=== PATIENT | male | born 1955 | race Caucasian/White ===

== ENCOUNTER 2018-10-11 07:37 | Inpatient (IN) ==
--- NOTE | 2018-10-02 17:19 | History and Physical Report ---
DATE OF ADMISSION: 10/11/2018 CHIEF COMPLAINT: Persistent left hip pain and discomfort. HISTORY OF PRESENT ILLNESS: The patient is a 63-year-old [employer] gentleman who is well known to me from previous right hip replacement done back in December 26 of last year. He has done well from this side. He has become more and more debilitated by left hip pain and discomfort. He has been in a gradual process over the past 2 years, but he has noticed this hip a lot more, now his right hip to fix. He describes groin pain. He continues to limp. No numbness or radicular symptoms. He is really happy with his right hip and would like to proceed with left hip replacement. 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 This elevates some of his blood tests including his white blood cell count. He is chronically anemic. He is without symptoms. We were able to get him to his last surgery without a blood transfusion. PAST MEDICAL HISTORY: 1. Asthma. 2. Arthritis. 3. Low back pain. 4. Chronic genetic pyruvate kinase deficiency. PAST SURGICAL HISTORY: Previous surgeries include: 1. Cholecystectomy. 2. Hiatal hernia. 3. Right total hip replacement done 12/26/2017. ALLERGIES: PENICILLIN WHICH CAUSES HIVES. No breathing problems. CURRENT MEDICINES: Include unspecified inhaler. 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 FAMILY HISTORY: Nonremarkable except for this pyruvate kinase deficiency. REVIEW OF HISTORY: Negative for diabetes, neurologic problems, vascular problems or bleeding disorders. He has got chronic anemia and elevated white count and elevated platelets due to the pyruvate kinase deficiency. PHYSICAL EXAMINATION: GENERAL: Physical examination shows a thin, healthy appearing, middle-aged male. HEENT: Benign. NECK: Supple. No lymphadenopathy. LUNGS: Clear to auscultation. HEART: Has a regular rate and rhythm. ABDOMEN: Soft, nontender, nondistended. EXTREMITIES: Grossly neurovascularly intact except as follows: Examination of the left hip reveals the patient walks with an antalgic gait. He is about 0.5 cm short on left side compared to the opposite side. He does have pain with internal rotation. I can internally rotate to about neutral. External rotation to about 30 degrees. Negative straight leg raise. He is neurologically intact. X-RAYS: X-rays of left hip were reviewed. Shows advanced left hip DJD. He has got cystic change of the femoral head and acetabulum. He has got concentric loss of his joint space. The right hip replacement looks to be in good position. ASSESSMENT: A 63-year-old Ep[employer] gentleman 9 months out from a right hip replacement with advanced left degenerative joint disease. He has become more debilitated by his left hip pain and would like to have this fixed. PLAN: We will take him to the operating room and do a left total hip replacement. The risks and benefits of this procedure were explained to the patient including but not limited to DVT, PE, , infection, neurological injury, vascular injury, bleeding problem, pain, limited range of motion, stiffness, failure to relieve symptoms, incomplete relief of symptoms, need for further surgery in future, fracture, leg length inequality, nerve palsy, dislocation, etc. The patient understands and desires to proceed. Informed consent was obtained. We did make him aware and he is fully aware that he is increased risk for a need for blood transfusion due to his pyruvate kinase deficiency. We will make sure he is on iron postoperatively. He did ask about just having a general anesthetic and I did tell him, I think it is in his best interest to do a spinal due to the limited that decreases the blood loss, but I will leave that up to him. He is planning to be discharged to home.
--- NOTE | 2018-10-08 13:28 | Anesthesiology Consultation ---
Date of Service October 08, 2018 Assessment & Plan (1) Encounter for pre-operative examination: Patient had R GALLO at [facility] 12/26/17. Anesthesia record shows SAB x 1 attempt, pt mejia. well. No major complications apparent in PACU. No blood transfusion needed. CHECK CBC STAT AM DOS. PCP clearance 10/10/18: This is to advise the Jose Enrique Barone has pyruvate kinase deficiency along with arthritis in his hip. His most recent hemoglobin is 8.9, which is good for him. There is no need to transfuse him unless he has extensive blood loss during his upcoming left hip surgery. The patient also has a grade 2 systolic murmur that is from the anemia and is of no real significance at this time. Patient is cleared to have his surgery as scheduled on Sunday10/11/18, under spinal anesthesia and any other medication the anesthesiologist suggested at that time. *Note, patient is Albaro and was not able to be reached fo nurse interview. History obtained from records. Chart Review Chart Review: Acceptable Risk for Surgery and Patient NOT seen in Pre Admission Testing History Surgery Operation Date: 10/11/18 10:40 Proposed Procedures p Left Total Hip Arthroplasty - Francesco Silveira MD Height/Weight Height: 5 ft 8 in Weight: 61.9 kg (From anesthesia eval 12/2017) Allergies Allergy/AdvReac Type Severity Reaction Status Date / Time Penicillins Allergy Severe HIVES Verified 12/26/17 10:34 Medications Home Medications Medication Instructions Recorded Confirmed Last Taken Albuterol Sulfate (Proair 2 puff INHALATION Q4H PRN #0 12/17/17 Unknown Respiclick) B-COMPLEX W/BIOTIN & FOLIC ACI 1 tab PO QAM #0 12/17/17 Unknown (SUPER B-COMPLEX) BIOFLAVONOID PRODUCTS (KAREN-C) 1 tab PO QAM #0 12/17/17 Unknown CALCIUM 500 mg PO QAM #0 12/17/17 Unknown CHOLECALCIFEROL (VITAMIN D) 5,000 unit PO QAM #0 12/17/17 Unknown Cyanocobalamin (Vitamin B-12) 3,000 mcg PO QAM #0 12/17/17 Unknown Folic Acid 800 mcg PO QAM #0 12/17/17 Unknown PAULA ARTHRITIS 1 tab PO BID #0 12/17/17 Unknown NUTRITIONAL SUPPLEMENTS (LIVER 1 tab PO QAM #0 12/17/17 Unknown DEFENSE) ACETAMINOPHEN (SB NON-ASPIRIN 1,000 mg PO Q8H 30 Days #180 tab 12/27/17 Unknown EXTRA STRE) ASPIRIN 81 mg PO BID 45 Days #90 tab 12/27/17 Unknown Tramadol HCl 50 - 100 mg PO Q6H PRN 15 Days #40 12/27/17 Unknown tab Past Medical History Medical History Pyruvate kinase deficiency Causing baseline anemia, leukocytosis and thrombocytosis. Baseline Hgb 8-9. Surgeon is aware of condition, notes that "we were able to get him to his last surgery without a blood transfusion" referring to 12/2017 [facility], [facility]. Low back pain Osteoarthritis Asthma COPD (chronic obstructive pulmonary disease) "Mild emphysematous process" noted on CXR 12/17/17 Heart murmur Moderate AV sclerosis without stenosis per 2018 echo. Past Surgical History Surgical History History of repair of hiatal hernia S/P cholecystectomy H/O total hip arthroplasty [facility] 12/26/17 H/O splenectomy age 18mo Past Anesthesia History R GALLO 12/17/17 [facility]: SAB x 1 attempt, pt mejia. well. Testing Electrocardiogram Date: 12/17/17 Findings: + NSR @ (73) Chest X-Ray Date: 12/17/17 Findings: + NAD Mild emphysematous process. Echocardiogram Date: 12/26/17 EF: 65-70% There is mild concentric LVH. Left ventricular systolic function is normal. Grade 1 diastolic dysfunction. Aortic valve sclerosis moderate, without significant aortic valve stenosis. Trace MR. Moderate TR. Right ventricular systolic pressure is normal. Laboratory Results Laboratory Tests 09/26/18 09/26/18 09/26/18 14:09 14:09 14:09 WBC 16.01 H Hgb 8.9 L Hct 27.7 L Plt Count 827 H PT 11.1 INR 1.1 APTT 30.0 Sodium 137 Potassium 4.2 Chloride 104 Carbon Dioxide 29 BUN 16 Creatinine 0.66 Glucose 88
[~2018-10-11 07:37] MED LIST: ACETAMINOPHEN 500 MG TAB PO SCH; BUPIVACAINE 0.5 % 5 MG/1 ML PF 10ML VIAL ONE; CEFAZOLIN 2000MG 2,000 MG/15 ML SYR IV SCH; FAMOTIDINE 20 MG TAB PO SCH; GABAPENTIN 300 MG x 2 PO SCH; LR 500ML BOLUS, THEN 15ML/HR IV SCH; LR 60ML/HR IV SCH; METOCLOPRAMIDE HCL 10 MG TABLET PO SCH; SCOPOLAMINE 1.5 MG TDSY TD SCH; TRANEXAMIC ACID 1,000 MG **IV Pre-op IV SCH
[2018-10-11 08:13] LABS: Hematocrit (blood only) 29.8 % (42-52); Hemoglobin 9.8 g/dL (14.0-18.0); Mean Corpuscular Volume 119.7 fL (80-100); Nucleated RBC # (auto) 0.11 K/uL (0-0); Nucleated RBC % (auto) 0.9 %; Platelet Count 709 K/uL (130-400); RDW Coefficient of Variation 13.6 % (11.5-14.5); RDW Standard Deviation 60.1 fL (36.4-46.3); Red Blood Count 2.49 M/uL (4.7-6.1); White Blood Count 11.69 K/uL (4.8-10.8)
[2018-10-11 08:19] LABS: Mean Corpuscular Hgb Conc 32.9 g/dL (32-36)
--- NOTE | 2018-10-11 08:31 | History & Physical Bridge Note ---
Date of Service October 11, 2018 History & Physical Bridge Note I have examined the patient, reviewed the History & Physical and in the interval since the performance of the History & Physical I have noted the following changes of clinical significance: no changes noted
[2018-10-11] MEDS ORDERED: PROPOFOL IV EMULSION 10 MG/ML 20 ML VIAL IV ONE (09:56)
[2018-10-11] MEDS ORDERED: LIDOCAINE HCL 2% 2 ML VIAL/AMP(20MG/ML) INFIL ONE (09:56)
[2018-10-11] MEDS ORDERED: MoRPHine SULFATE PF 1 MG/ML 10 ML AMP/VIAL ONE (09:56)
[2018-10-11] MEDS ORDERED: fentaNYL citrate 100 MCG/2 ML VIAL ONE (09:56)
[2018-10-11] MEDS ORDERED: MIDAZOLAM HCL 1 MG/ML 2ML VIAL ONE (09:56)
[2018-10-11] MEDS ORDERED: BACITRACIN INJ 50,000 UNIT VIAL ONE (10:55)
[2018-10-11] MEDS ORDERED: BUPIVACAINE/EPINEPHRINE 0.5% MPF 1:200,000 30 ML VIAL ONE (10:55)
[2018-10-11] MEDS ORDERED: PROMETHAZINE HCL 25 MG in SODIUM CHLORIDE 0.9% 50 ML IV PRN (11:15)
[2018-10-11] MEDS ORDERED: NALOXONE HCL 1 MG in SODIUM CHLORIDE 0.9% 1000ML 1,000 ML IV PRN (11:15)
[2018-10-11] MEDS ORDERED: LACTATED RINGER'S 500 ML IV PRN (11:15)
[2018-10-11] MEDS ORDERED: ONDANSETRON INJ 2 MG/ML 2 ML VIAL IV PRN (11:15)
[2018-10-11] MEDS ORDERED: ePHEDrine sulfate 50 MG/ML AMP IV PRN (11:15)
[2018-10-11] MEDS ORDERED: DC INTRASPINAL MORPHINE SCH (11:15)
[2018-10-11] MEDS ORDERED: SODIUM CHLORIDE 0.9% 1000ML 1,000 ML IV SCH (11:15)
[2018-10-11] MEDS ORDERED: NO NARCOTICS OR SEDATIVES SCH (11:15)
[2018-10-11] MEDS ORDERED: MoRPHine SULFATE PF 1 MG/ML 10 ML AMP/VIAL INT SPINAL ONE (11:15)
[2018-10-11] MEDS ORDERED: NALBUPHINE HCL INJ 10 MG/ML AMP IV PRN (11:15)
[2018-10-11] MEDS ORDERED: DiphenhydrAMINE HCL 50 MG/ML VIAL IV PRN (11:15)
[2018-10-11] MEDS ORDERED: NALOXONE HCL 0.4 MG/1 ML VIAL/CARP IV PRN (11:15)
[2018-10-11] MEDS ORDERED: NALOXONE HCL 0.08 MG in SYRINGE 1.8 ML IV PRN (11:15)
[2018-10-11] MEDS ORDERED: ONDANSETRON INJ 2 MG/ML 2 ML VIAL ONE (11:18)
--- NOTE | 2018-10-11 12:27 | Post Operative Brief Note ---
Immediate Post Op Note v1 Date of Surgery October 11, 2018 Pre & Post Diagnosis Operation Date: 10/11/18 10:40 Pre-Op Diagnosis: Advanced Left Hip Degenerative Joint Disease Post-Op Diagnosis: Advanced Left Hip Degenerative Joint Disease Procedure Operation Date: 10/11/18 10:40 Actual Procedures p Left Total Hip Arthroplasty(Left) - Francesco Silveira MD Surgeon Francesco Silveira MD [employer], PAC Estimated Blood Loss 300 Findings Consistent with Post-Op Diagnosis Fluids 1400 cc Specimens Left Femoral Head Drains Gonsalves Catheter Anesthesia Type Spinal MAC Complications none Disposition Accompanied Patient To Recovery: Yes Disposition: Recovery Room
--- NOTE | 2018-10-11 13:05 | XRay Report ---
XR hip 1V LT w pelvis HISTORY: 63 years-old Male IN PACU - A/P PELVIS and LATERAL HIP left hip total joint arthroplasty. History of degenerative joint disease. COMPARISON: Pelvis and hip radiographs 12/26/2017 and 09/26/2018 TECHNIQUE: Portable AP view of the pelvis with crosstable lateral view of the left hip FINDINGS: Left hip total joint arthroplasty demonstrates satisfactory alignment. Lateral skin sola are noted with associated subcutaneous and deep tissue air. No retained foreign body. Right hip total joint ar throplasty also appears to be in satisfactory positioning. IMPRESSION: Left hip total arthroplasty demonstrates satisfactory alignment. The above report was generated using voice recognition software. It may contain grammatical, syntax o r spelling errors. Electronically signed by: Mac Pugh M.D. 10/11/2018 1:04 PM
--- NOTE | 2018-10-11 13:08 | Anesthesiology Progress Note ---
Date of Service October 11, 2018 Anesthesia Post Procedure Vital Signs Vital Signs: Temp Pulse Pulse Resp BP Pulse Ox 10/11/18 13:00 72 13 114/71 100 10/11/18 12:50 63 13 106/68 100 10/11/18 12:40 65 16 108/65 100 10/11/18 12:30 36.1 C L 72 20 106/62 100 10/11/18 09:12 36.8 C 69 18 135/77 95 Pain Intensity Left Hip: Pain Intensity: 0 Notes Mental Status: alert / awake / arousable Patient Amnestic to Procedure: Yes Nausea / Vomiting: adequately controlled Pain: adequately controlled Airway Patency, RR, SpO2: stable & adequate BP & HR: stable & adequate Hydration State: stable & adequate Neuraxial Anesthesia: was administered and sensory block is resolving Anesthetic Complications: no major complications apparent
[2018-10-11] MEDS ORDERED: ALBUTEROL HFA 8 GM INHALER INH PRN (13:58)
[2018-10-11] MEDS ORDERED: ALUMINUM/MAGNESIUM SUSP 30 ML UDC PO PRN (13:58)
[2018-10-11] MEDS ORDERED: TAMSULOSIN HCL 0.4 MG CAP PO PRN (13:58)
[2018-10-11] MEDS ORDERED: BISACODYL 10 MG SUPP PR PRN (13:58)
[2018-10-11] MEDS ORDERED: [UNRECOGNIZED DRUG - REMARK] PO SCH (13:58)
[2018-10-11] MEDS ORDERED: METOCLOPRAMIDE HCL INJ 5 MG/ML 2 ML VIAL IV PRN (13:58)
[2018-10-11] MEDS ORDERED: MAGNESIUM HYDROXIDE SUSP 30 ML UDC PO PRN (13:58)
[2018-10-11] MEDS: SODIUM CHLORIDE 0.9% 1000ML 1,000 ML IV SCH ×2 (14:46→23:30)
--- NOTE | 2018-10-11 16:08 | Progress Note ---
DATE: 10/11/2018 SUBJECTIVE: A 63-year-old gentleman postop from a left hip replacement. He is doing well. Just starting to get the feeling and function back in his legs. Not having any pain yet. No chest pain or shortness of breath. Not feeling dizzy or lightheaded. OBJECTIVE: VITAL SIGNS: Temperature is 36.7. Vital signs stable. GENERAL: Physical examination reveals a pleasant, middle-aged male. He is sitting up in bed, looks comfortable. LUNGS: Clear to auscultation. HEART: Regular rate and rhythm. ABDOMEN: Soft, nontender, nondistended. EXTREMITIES: Grossly neurovascularly intact except as follows: Examination of the left lower extremity reveals the leg lengths to be approximately equal. Hip is located. Dressing is clean, dry, and intact. He can dorsiflex and plantarflex his foot appropriately. He is neurologically intact. X-RAYS: X-ray of left hip from recovery room reviewed. It shows left uncemented total hip arthroplasty. Components looked to be in good position. No signs of problems. ASSESSMENT: A 63-year-old [facility] gentleman postop from a left hip replacement, doing well. His pain is controlled. Just starting to get the nerve function back in his leg. PLAN: 1. DVT prophylaxis including thigh-high TEDs, SCDs, and aspirin twice a day. 2. PT/OT. Weight bear as tolerated. Left total hip protocol. 3. Pain control, doing well with current pain regimen. 4. IV antibiotics x24 hours. 5. Disposition: Plan to discharge to home with some home health once adequately recovered.
[2018-10-11] MEDS: FERROUS GLUCONATE 324 MG TAB PO SCH (16:26)
[2018-10-11] MEDS: KETOROLAC 30 MG/ML VIAL IV SCH ×2 (16:28→22:25)
[2018-10-11] MEDS: CHECK SCOPOLAMINE PATCH PLACEMENT SCH ×2 (16:30→23:30)
--- NOTE | 2018-10-11 16:35 | Operative Report ---
DATE OF OPERATION: 10/11/2018 SURGEON: Francesco Silveira MD AUTOMATIC MACHINES SUPERVISOR: BROOKS Osman PREOPERATIVE DIAGNOSIS: Left hip degenerative joint disease. POSTOPERATIVE DIAGNOSIS: Left hip degenerative joint disease. PROCEDURE PERFORMED: Left uncemented ceramic on highly cross-linked polyethylene total hip arthroplasty. COMPLICATIONS: None. ESTIMATED BLOOD LOSS: 300 mL. FLUID REPLACEMENT: 1400 mL crystalloid fluid replacement. ANESTHESIA: Spinal. DRAINS: None. SPECIMENS: Left femoral head sent for pathology. OPERATIVE INDICATIONS: The patient is a 63-year-old very active [employer] gentleman who has had a lifelong history of hip pain and discomfort. He underwent a right hip replacement 10 months ago and has done excellent from this. He continued to be limited by left hip pain and discomfort. He failed all conservative care. He elected to proceed with total hip arthroplasty. OPERATIVE FINDINGS: Operative findings revealed advanced left hip DJD. Extensive grade 4 changes of the femoral head and acetabulum. Moderate size joint effusion. OPERATIVE IMPLANTS: Operative implants consisted of: 1. Biomet G7 size 58 mm acetabular shell. 2. 6.5 cancellous acetabular screws, one at 35 mm in length and one at 25 mm in length. 3. An apex hole eliminator. 4. Highly cross-linked polyethylene liner with a 58 mm outer diameter and 36 mm inner diameter. 5. DePuy Corail size 13 KLA femoral stem. 6. A +5/36 mm ceramic articular ball. OPERATIVE PROCEDURE: The patient was taken to the operating room, identified and placed on the operating table in supine position. All contact areas were appropriately padded. IV antibiotics were provided by anesthesia team. A spinal anesthetic had been implemented in the holding area. Gonsalves catheter was placed in sterile fashion. The patient was then placed in right lateral decubitus position. An axillary roll was placed. [facility] hip positioner was used for positioning. Left hip and leg were then prepped and draped in usual sterile fashion. A posterolateral approach to the left hip was then performed through a curvilinear incision centered over the greater trochanter. Sharp dissection was carried through subcutaneous tissue down to the level of the IT band and gluteal fascia. The IT band and gluteal fascia were incised longitudinally in line with the skin incision. The underlying greater trochanteric bursa was excised. The piriformis and external rotators were tagged and taken off the posterior aspect of the hip joint. Great care was taken throughout the procedure to protect the sciatic nerve at all times. Posterior capsulotomy was then performed leaving a large flap for later repair. Hip was internally rotated and dislocated. Femoral neck osteotomy cut was made with the final cut 17 mm above the lesser trochanter, which was about the same as the other side. The femoral head was removed and sent for pathology. The femur was retracted anteriorly. Attention was then drawn to the acetabulum. The acetabular labrum was excised. The pulvinar fat was excised. Sequential reaming of the acetabulum was then performed beginning with a size 51 and progressing up to 57. A 58 mm Biomet G7 acetabular shell was then placed in about 40 degrees of lateral opening and 20 degrees of anteversion. It was fixed with two 6.5 cancellous acetabular screws. A trial liner was placed. Attention was then drawn to the femur. The proximal femur was entered with a [employer] cutter followed by canal finder. I then broached beginning with a size 8 and progressing up to 13. His cancellous bone was not very robust or supportive, but had to get pretty good distal fixation distally. We broached it up to 13. We got good fit. A calcar reamer was used to smoothen off the calcar. The final calcar cut was about 17 mm, which was just a millimeter less than the opposite side. We then trialed the hip. I initially used the KLA stem, but the offset just seemed too much. The hip was stable, but just seemed too tight, particularly over the IT band area. Therefore, we elected to use the standard stem with +5 ball. The hip was fully stable in full extension and external rotation and flexion to 90 degrees, internal rotation to over 70 degrees at 90 degrees of flexion. I elected to place these implants. All trial implants were removed. An apex hole eliminator was placed. Highly cross-linked polyethylene liner was placed. A Corail size 13 standard femoral stem was impacted in position. A +5/36 mm articular ball was placed. Hip was located and once again found to be stable. Attention was then drawn toward closing. The wound was irrigated with copious amounts of pulsatile lavage solution. I did inject locally with 60 mL of 0.5% Marcaine with epinephrine. The posterior capsule and external rotators were then repaired through drill holes in the posterior trochanter with #2 Ti-Cron suture. The IT band and gluteal fascia were then closed with #1 PDS suture in running fashion. The subcutaneous tissues were then closed in 2 layers with deep layer #1 Vicryl suture and subcutaneous tissue with 2-0 Dexon suture in a buried interrupted fashion. The skin was closed with skin sola. Leg was then cleaned, dried and a sterile dressing of Xeroform, 4 x 4's, ABD pad and foam tape was applied. The patient was then transferred to the recovery room in stable condition. The patient tolerated the procedure well with no complication. All needle and sponge counts were correct at the end of the operation. I attest to the content of the Intraoperative Record and any orders documented therein. Any exception s are noted below.
[2018-10-11] MEDS: ASCORBIC ACID 500 MG TAB PO SCH (16:37)
[2018-10-11] MEDS: CEFAZOLIN 1000MG 1,000 MG/7.5 ML SYR IV SCH (18:39)
[2018-10-11] MEDS ORDERED: TRANEXAMIC ACID 1,000 MG in 0.9 % SODIUM CHLORIDE 100 ML IV SCH (19:00)
[2018-10-11] MEDS: SENNA 8.6 MG TAB PO SCH (20:50)
[2018-10-11] MEDS: DOCUSATE SODIUM 100 MG CAP PO SCH (20:50)
[2018-10-11] MEDS: ASPIRIN 81 MG ECTAB PO SCH (20:50)
[2018-10-11] MEDS ORDERED: [UNRECOGNIZED DRUG - OTHER] PO SCH (21:00)
[2018-10-11] MEDS ORDERED: NON-FORMULARY MEDICATION (Aspirin 81 MG) PO SCH (21:00)
[2018-10-11] MEDS: ACETAMINOPHEN 500 MG TAB PO SCH (21:13)
[2018-10-12] MEDS: CEFAZOLIN 1000MG 1,000 MG/7.5 ML SYR IV SCH (03:48)
[2018-10-12] MEDS: KETOROLAC 30 MG/ML VIAL IV SCH ×3 (03:48→19:53)
[2018-10-12] MEDS: ACETAMINOPHEN 500 MG TAB PO SCH ×3 (05:04→19:53)
[2018-10-12] MEDS ORDERED: ONDANSETRON INJ 2 MG/ML 2 ML VIAL IV PRN (05:16)
[2018-10-12] MEDS ORDERED: HYDROmorphone INJ 0.5 MG/0.5 ML SYR IV PRN (05:16)
[2018-10-12] MEDS ORDERED: OXYCODONE HCL IR 5 MG TAB (IMMEDIATE RELEASE) PO PRN (05:16)
[2018-10-12] MEDS ORDERED: NALOXONE HCL 0.4 MG/1 ML VIAL/CARP IV PRN (05:16)
[2018-10-12] MEDS ORDERED: TRAMADOL HCL 50 MG TABLET PO PRN (05:16)
[2018-10-12 06:16] LABS: Basophils # (auto) 0.09 K/uL (0-0.2); Basophils % (auto) 0.5 %; Eosinophils # (auto) 0.44 K/uL (0-0.5); Eosinophils % (auto) 2.5 %; Hematocrit (blood only) 23.2 % (42-52); Hemoglobin 7.8 g/dL (14.0-18.0); Immature Granulocytes % (auto) 0.6 %; Lymphocytes # (auto) 4.19 K/uL (1.2-3.4); Lymphocytes % (auto) 23.9 %; Mean Corpuscular Hgb Conc 33.6 g/dL (32-36); Mean Platelet Volume 9.1 fL (7.4-10.4); Monocytes # (auto) 1.73 K/uL (0.11-0.59); Monocytes % (auto) 9.9 %; Neutrophils # (auto) 10.98 K/uL (1.4-6.5); Neutrophils % (auto) 62.6 %; Nucleated RBC # (auto) 0.06 K/uL (0-0); Nucleated RBC % (auto) 0.4 %; Platelet Count 537 K/uL (130-400); RDW Coefficient of Variation 13.6 % (11.5-14.5); RDW Standard Deviation 58.4 fL (36.4-46.3); Red Blood Count 1.95 M/uL (4.7-6.1); White Blood Count 17.53 K/uL (4.8-10.8)
[2018-10-12 06:37] LABS: BUN Creatinine Ratio 26.7 (10-20); Calcium 7.9 mg/dl (8.5-10.1); Creatinine Clr Calc Pharmacy 105.9 ml/min; Est GFR (African American) 120.9; Est GFR (Non-African American) 104.3; Potassium 4.2 mmol/L (3.5-5.1)
[2018-10-12 07:09] LABS: Howell-Jolly Bodies Occasional; Macrocytosis Present; Pappenheimer Bodies 3+
[2018-10-12] MEDS: ASCORBIC ACID 500 MG TAB PO SCH ×2 (08:37→18:34)
[2018-10-12] MEDS: ASPIRIN 81 MG ECTAB PO SCH ×2 (08:38→19:52)
[2018-10-12] MEDS: DOCUSATE SODIUM 100 MG CAP PO SCH ×2 (08:38→19:52)
[2018-10-12] MEDS: MULTIVITAMIN TAB PO SCH (08:39)
[2018-10-12] MEDS: VITAMIN B COMPLEX TAB PO SCH (08:39)
[2018-10-12] MEDS: TAPENTADOL HCL ER 50 MG TABCR PO SCH ×2 (08:39→19:51)
[2018-10-12] MEDS: CYANOCOBALAMIN 500 MCG TABLET (VITAMIN B-12) PO SCH (08:40)
[2018-10-12] MEDS: CHOLECALCIFEROL 1,000 UNITS TAB PO SCH (08:41)
[2018-10-12] MEDS ORDERED: NUTRITIONAL SUPPLEMENTS PO SCH (09:00)
[2018-10-12] MEDS ORDERED: BIOFLAVONOID PRODUCTS PO SCH (09:00)
--- NOTE | 2018-10-12 09:08 | Progress Note ---
DATE: 10/12/2018 SUBJECTIVE: A 63-year-old gentleman postop day 1 from a left hip replacement. He is doing pretty well. No pain at while lying in bed. Some pain when he was getting up and around. No chest pain or shortness of breath. Not feeling dizzy or lightheaded. OBJECTIVE: VITAL SIGNS: Temperature is 36.5. Vital signs stable. GENERAL: Physical examination reveals a healthy, pleasant, middle-aged male. He is lying in bed, looks comfortable. Color looks good. LUNGS: Clear to auscultation. HEART: Regular rate and rhythm. ABDOMEN: Soft, nontender, nondistended. EXTREMITIES: Grossly neurovascularly intact except as follows: Examination of the left hip and leg reveals leg lengths to be equal. Hip is located. Thigh is soft and supple. No drainage on his dressing. He is neurologically intact. LABORATORY DATA: Hemoglobin 7.8. Hematocrit 23.2. Electrolytes are stable. ASSESSMENT: A 63-year-old gentleman with pyruvate kinase deficiency postop day 1 from a left hip replacement, doing well. He is anemic, but without symptoms. He used to have normally low hemoglobin. His hip is located. He is neurologically intact. PLAN: 1. DVT prophylaxis including thigh-high TEDs, SCDs, and aspirin twice a day. 2. PT/OT. He can weightbear as tolerated. Left total hip protocol. 3. Pain control, doing well with current pain regimen. 4. Chronic anemia. We have to limit the amount of iron that he gets, but we will switch him just to one iron tablet a day and it will boost his blood count up. He is young and healthy and is asymptomatic and he should tolerate this relatively lower hemoglobin level. We will keep an eye on his symptoms. 5. Disposition: Plan to discharge to home once adequately recovered and stable.
[2018-10-12] MEDS: FOLIC ACID 400 MCG TAB PO SCH (14:13)
[2018-10-12] MEDS ORDERED: Nursing to Pharmacy Communication ONE (17:26)
[2018-10-12] MEDS: FERROUS SULFATE 325 MG TAB PO SCH (18:34)
[2018-10-12] MEDS: FERROUS GLUCONATE 324 MG TAB PO SCH (18:50)
[2018-10-12] MEDS: SENNA 8.6 MG TAB PO SCH (19:52)
[2018-10-13] MEDS: KETOROLAC 30 MG/ML VIAL IV SCH ×3 (01:22→13:28)
[2018-10-13] MEDS: ACETAMINOPHEN 500 MG TAB PO SCH ×2 (05:11→13:28)
[2018-10-13] MEDS: ASPIRIN 81 MG ECTAB PO SCH (08:48)
[2018-10-13] MEDS: ASCORBIC ACID 500 MG TAB PO SCH (08:49)
[2018-10-13] MEDS: FOLIC ACID 400 MCG TAB PO SCH (08:49)
[2018-10-13] MEDS: VITAMIN B COMPLEX TAB PO SCH (08:49)
[2018-10-13] MEDS: FERROUS SULFATE 325 MG TAB PO SCH (08:50)
[2018-10-13] MEDS: DOCUSATE SODIUM 100 MG CAP PO SCH (08:51)
[2018-10-13] MEDS: MULTIVITAMIN TAB PO SCH (08:51)
[2018-10-13] MEDS: CHOLECALCIFEROL 1,000 UNITS TAB PO SCH (08:51)
[2018-10-13] MEDS: CYANOCOBALAMIN 500 MCG TABLET (VITAMIN B-12) PO SCH (08:52)
[2018-10-13] MEDS: TAPENTADOL HCL ER 50 MG TABCR PO SCH (11:26)
--- NOTE | 2018-10-13 13:15 | Progress Note ---
DATE: 10/13/2018 SUBJECTIVE: A 63-year-old gentleman postop day 2 from a left hip replacement. He is doing well. Pain is controlled. Therapy has gone well. No chest pain or shortness of breath. Not feeling dizzy or lightheaded. OBJECTIVE: VITAL SIGNS: Temperature 36.7. Vital signs stable. PHYSICAL EXAMINATION: GENERAL: Reveals a pleasant, middle-aged male. He is lying in bed, looks comfortable. EXTREMITIES: Examination of left leg reveals the leg lengths to be equal. Dressing is clean, dry and intact. Thigh is soft and supple. There is no drainage. He is neurologically intact. ASSESSMENT: A 63-year-old gentleman postoperative day 2 from a left hip replacement, doing well. He has got chronic anemia but without symptoms. PLAN: 1. DVT prophylaxis including thigh-high TEDs, SCDs, and aspirin twice a day. 2. PT/OT. Weight bear as tolerated. Left total hip protocol. 3. Pain controlled, doing pretty well with current pain regimen. 4. Disposition: Plan to discharge to home later today.
--- NOTE | 2018-10-14 17:25 | Discharge Summary ---
ADMITTING PHYSICIAN AND SURGEON: Dr. Francesco Silveira. ADMITTING DIAGNOSIS: DJD. SURGERY PERFORMED: Left total hip arthroplasty. SECONDARY DIAGNOSES: Asthma, arthritis, low back pain, chronic pyruvate kinase deficiency. CONSULTS: None obtained. HISTORY AND PHYSICAL EXAMINATION: Well documented in the patient's chart. HOSPITAL COURSE: The patient was admitted on 10/11/2018 and underwent total hip arthroplasty, tolerated the procedure well. There were no complications. He was transferred to the PACU postoperatively and later to the orthopedic floor for further care. He was given Ancef for antibiotic prophylaxis, MATY stockings, SCDs and aspirin for DVT prophylaxis. He had a history of chronic anemia. He was anemic postoperatively. He did not require any blood transfusions. He received an iron supplement. There were no complications during his hospital stay. By postoperative day 2 he was tolerating a regular diet, pain was controlled with oral pain medicine. He was participating in physical therapy. Postop day 2 he was discharged home, given printed discharge instructions including new prescriptions for extra strength Tylenol, aspirin and tramadol. Continue his home medications, continue physical therapy, weightbearing as tolerated, total hip precautions, MATY stockings. Follow up approximately 2 weeks postop, or sooner if there are any problems or concerns.
== END 2018-10-13 14:27 | disposition home or self-care (01) | DRG 470 ==
LOC: ASU 07:37 → 3E 12:32

== ENCOUNTER 2023-06-04 08:47 | Observation (INO) ==
--- NOTE | 2023-05-01 12:29 | PAT Medication Instructions ---
Medication Instructions Date of Service May 01, 2023 Home Medications Adrenal Complex 1 cap PO QAM albuterol sulfate 90 mcg/actuation aerosol inhaler 1 inh inhalation QID PRN sob ascorbic acid (vitamin C) 500 mg tablet (Vitamin C) 500 mg PO QAM calcium 1 tab PO QAM cyanocobalamin (vitamin B-12) 1 tab PO QAM deferasirox 360 mg tablet (Jadenu) 360 mg PO BID folic acid 1 tab PO QAM turmeric 400 mg capsule 400 mg PO QAM vitamin B complex 1 cap PO DAILY ASK your prescriber and surgeon deferasirox 360 mg tablet (Jadenu) 360 mg PO BID STOP taking 2 weeks before surgery (or as soon as possible if surgery is within 2 weeks) Adrenal Complex 1 cap PO QAM turmeric 400 mg capsule 400 mg PO QAM DO NOT take the morning of surgery ascorbic acid (vitamin C) 500 mg tablet (Vitamin C) 500 mg PO QAM calcium 1 tab PO QAM cyanocobalamin (vitamin B-12) 1 tab PO QAM folic acid 1 tab PO QAM vitamin B complex 1 cap PO DAILY Take morning of surgery With a small sip of water, OTHERWISE NOTHING TO EAT OR DRINK AFTER MIDNIGHT: albuterol sulfate 90 mcg/actuation aerosol inhaler 1 inh inhalation QID PRN sob (use if needed; please bring rescue inhaler with you to hospital day of surgery if possible) Take evening before surgery albuterol sulfate 90 mcg/actuation aerosol inhaler 1 inh inhalation QID PRN sob (if needed) Other Notes If you have any questions please call us at [phone] or [phone] or [phone] or [phone]
--- NOTE | 2023-05-04 10:03 | Anesthesiology Consultation ---
Date of Service May 04, 2023 Assessment & Plan (1) Encounter for pre-operative examination: Chart Review Chart Review: Pending: Refer to Additional Notes / Consult section (pending PCP response and updated ECHO ) and Patient seen in Pre Admission Testing - Please send optimization note re: leukocytosis, anemia, thrombocytosis and needing updated ECHO prior to surgery to Dr. Kaufman ([facility]) - Pt is NOT an OPJ candidate Per PAT appt on 05/04/23, patient with recent cough, sore throat rhinitis- only lasted several days. Almost resovled as of 05/04/23. No known disease exposures. Will leave to surgeon's discretion if preop Covid testing needed. From anesthesia standpoint- no preop Covid testing needed as surgery is 31 days away. Pt will call if symptoms reoccurr, do not fully resolve or if illness exposure occurs Left GALLO 10/11/18= Done under SAB at L3-4 with 1 attempt Teaching & Discussion Pre-Anesthesia Teaching/Discussion Notes: Instructed NPO after midnight before surgery,except medications with 15 cc of water. Medication instructions provided according to the PAT guidelines. History Surgery Operation Date: 06/04/23 08:50 Proposed Procedures p Left Total Knee Arthroplasty - Francesco Silveira MD Height/Weight Height: 5 ft 10 in Weight: 66.1 kg Allergies Allergy/AdvReac Type Severity Reaction Status Date / Time Penicillins Allergy Severe HIVES Verified 05/01/23 10:56 Medications Home Medications Medication Instructions Recorded Confirmed Last Taken Adrenal Complex 1 cap PO QAM 05/01/23 05/01/23 Unknown albuterol sulfate 90 mcg/actuation 1 inh inhalation QID PRN sob 05/01/23 05/01/23 Unknown aerosol inhaler ascorbic acid (vitamin C) 500 mg 500 mg PO QAM 05/01/23 05/01/23 Unknown tablet (Vitamin C) calcium 1 tab PO QAM 05/01/23 05/01/23 Unknown cyanocobalamin (vitamin B-12) 1 tab PO QAM 05/01/23 05/01/23 Unknown deferasirox 360 mg tablet (Jadenu) 360 mg PO BID 05/01/23 05/01/23 Unknown folic acid 1 tab PO QAM 05/01/23 05/01/23 Unknown turmeric 400 mg capsule 400 mg PO QAM 05/01/23 05/01/23 Unknown vitamin B complex 1 cap PO DAILY 05/01/23 05/01/23 Unknown Past Medical History Medical History Asthma Rare albuterol inhaler use- currently stable COPD (chronic obstructive pulmonary disease) "Mild emphysematous process" noted on CXR 12/17/17 GERD (gastroesophageal reflux disease) Well controlled and stable Heart murmur Moderate AV sclerosis without stenosis per 2018 echo. Low back pain Pyruvate kinase deficiency Causing baseline anemia, leukocytosis and thrombocytosis. Baseline Hgb 8-9. Surgeon is aware of condition per patient Followed by Dr. Kaufman - PCP Exercise / Class Metabolic Activity III < 4 Walking/Shop/Light housework (one flight of stairs - no chest pain, mild SOB ) Past Surgical History Surgical History H/O splenectomy age 18mo H/O total hip arthroplasty [facility] 12/26/17 Rt History of left hip replacement History of repair of hiatal hernia S/P cholecystectomy Past Anesthesia History No Hx of Anesthesia Complications and No Family Hx of Anesthesia Complications History of PONV No Hx of PONV and No Hx of Motion Sickness Social History Smoking Status: Never smoker Do You Dip or Chew Tobacco: No Hx Alcohol Use: No Hx Substance Use: No substance use type: does not use Review of Systems - Sore throat earlier this week- resolved. Cough - improved. Clear rhinitis. No fever or chills. Declines need for Covid test at this time. - Hx of blood transfusion due to PKD (around 2013) Patient denies chest pain, shortness of breath at rest, wheezing, palpitations. No hx of seizures, stroke, [place], apnea/snoring. No hx of blood clots Physical Exam Vital Signs VITALS BP 112/65 P 77 TEMP 98.2 SP02 94% RESP 16 Constitutional no acute distress ENMT Mouth: no TMJ clicking Thyromental Distance: > or= 3.5 Finger Breadths (3.5) Mallampati Class: III Missing bottom side teeth and molar Top full denture Neck + limited neck extension (mild) Respiratory normal respiratory effort; no respiratory distress Auscultation: lungs clear to auscultation bilaterally; no wheezes Cardiovascular Rate/Rhythm: regular rate and regular rhythm Heart Sounds: + murmur (III/IV-) Vessels: no carotid bruit Musculoskeletal Spine: no pain with cervical ROM Extremities: extremities normal to inspection Psychiatric Orientation: alert Lab Results Anesthesia Preop Results Results Anesthesia Widget: WBC 12.72 K/ul (4.8-10.8) H 05/04/23 Hgb 7.6 g/dl (14.0-18.0) L 05/04/23 Hct 22.8 % (42.0-52.0) L 05/04/23 Plt 604 K/uL (130-400) H 05/04/23 Na 137 mmol/L (136-145) 05/04/23 K 4.3 mmol/L (3.5-5.1) 05/04/23 Cl 104 mmol/L (98-107) 05/04/23 CO2 29 mmol/L (21-32) 05/04/23 BUN 18 mg/dl (6-23) 05/04/23 Creat 0.55 mg/dl (0.6-1.4) L 05/04/23 Glucose Level 97 mg/dl (70-99(Fasting)) 05/04/23 PT 11.4 Seconds (9.0-12.0) 05/04/23 PTT 31.0 Seconds (21.0-31.0) 05/04/23 INR 1.0 (0.9-1.1) 05/04/23 Blood Type O Positive 05/04/23 Antibody Screen NEGATIVE 05/04/23 Testing Laboratory Results Leukocytosis, anemia and thrombocytosis - chronic due to PKD- will write optimization note to PCP to further address prior to surgery Electrocardiogram Date: 05/04/23 Findings: + NSR @ (79bpm) Possible left atrial enlargement. Minimal voltage criteria for LVH, may be normal variant. When compared to EKG from December 17, 2017no significant changes found per cardio Chest X-Ray Date: 05/04/23 Findings: + NAD FINDINGS: No lines and tubes are seen. The aorta is tortuous. The remainder of the cardiomediastinal silhouette is unremarkable. Calcified granuloma is in the left lower lobe. Blunting of the left costophrenic angle may be related to scarring. Echocardiogram Date: 12/26/17 EF: 65-70% There is mild concentric LVH. Left ventricular systolic function is normal. Grade 1 diastolic dysfunction. Aortic valve sclerosis moderate, without significant aortic valve stenosis. Trace MR. Moderate TR. Right ventricular systolic pressure is normal. (Discussed with Dr. Haynes- recommends updated ECHO prior to surgery)
--- NOTE | 2023-05-30 17:21 | History & Physical Report ---
Date of Service May 30, 2023 Assessment & Plan (1) Left knee DJD: 67-year-old Christianity gentleman with chronic pyruvate kinase deficiency and anemia with advanced left knee arthritis likely due to AVN. Date he has history of bilateral hip replacements and done well with them. He is limited by his knee pain and would like to have his knee fixed. He is failed conservative measures. Plan: We take him to the operating to left total knee replacement for the right cementless procedure explained to the patient clued but not limited to DVT PE infection neurological and vascular bleeding pain remains most this is fairly of symptoms incomplete relief. Need for further surgery in future excetra. Patient understands and desires to proceed informed consent was obtained. His initial H&H was quite low but we did repeat and is back to his baseline. He is anemic. We do need to avoid blood transfusions due to his pyruvate kinase deficiency it with his aspirin for DVT prophylaxis. He is planned to be discharged from home likely due to [facility] for [facility]. History of Present Illness Chief Complaint: . Persistent progressive left knee pain and discomfort. Primary Care Provider: NO PCP . Patient is a 67-year-old Christianity gentleman well-known to me from previous bilateral hip replacements in the past. He had the left one done 2019 right 1 due to 2018. Hips have done well. Over the past year to 2 years developed increased pain discomfort in his left knee. He has been seen and treated with injections which helped temporarily. Pains become more disabling. He limps more today goes on. X-rays show progressive arthritis and likely avascular necrosis medial femoral condyle. A trial affecting his quality of life. He like to have his knee fixed. Of note, the patient does have chronic approve 8 kinase deficiency and chronic anemia. Despite this he functions quite well. Allergies Allergy/AdvReac Type Severity Reaction Status Date / Time Penicillins Allergy Severe HIVES Verified 05/01/23 10:56 Home Medications Medication Instructions Recorded Confirmed Type Adrenal Complex 1 cap PO QAM 05/01/23 05/01/23 History albuterol sulfate 90 mcg/actuation 1 inh inhalation QID PRN sob 05/01/23 05/01/23 History aerosol inhaler ascorbic acid (vitamin C) 500 mg 500 mg PO QAM 05/01/23 05/01/23 History tablet (Vitamin C) calcium 1 tab PO QAM 05/01/23 05/01/23 History cyanocobalamin (vitamin B-12) 1 tab PO QAM 05/01/23 05/01/23 History deferasirox 360 mg tablet (Jadenu) 360 mg PO BID 05/01/23 05/01/23 History folic acid 1 tab PO QAM 05/01/23 05/01/23 History turmeric 400 mg capsule 400 mg PO QAM 05/01/23 05/01/23 History vitamin B complex 1 cap PO DAILY 05/01/23 05/01/23 History Past Med/Surg History Medical History GERD (gastroesophageal reflux disease) Well controlled and stable Heart murmur Moderate AV sclerosis without stenosis per 2018 echo. COPD (chronic obstructive pulmonary disease) "Mild emphysematous process" noted on CXR 12/17/17 Pyruvate kinase deficiency Causing baseline anemia, leukocytosis and thrombocytosis. Baseline Hgb 8-9. Surgeon is aware of condition per patient Followed by Dr. Kaufman - PCP Low back pain Asthma Rare albuterol inhaler use- currently stable Surgical History History of left hip replacement H/O splenectomy age 18mo History of repair of hiatal hernia S/P cholecystectomy H/O total hip arthroplasty [facility] 12/26/17 Rt Social History Smoking Status: Never smoker Second Hand Exposure: No; Do You Dip or Chew Tobacco: No; Hx Alcohol Use: No Hx Substance Use: No Preferred Language: Australian Communication Ability: Effective Teacher Music Required: No Beliefs That Will Affect Care: None marital status: Current Living Situation: Family Feels Safe at Home: Yes Safety Concerns: Feels Safe At This Time Assistive Devices: Cane and Denture - Upper Review of Systems All systems reviewed & are unremarkable except as noted in HPI & below. Physical Exam . Physical examination of the left knee reveals the patient who ambulates independently. He does seem to limp on his left side. Got varus alignment to his knee. Small knee effusion. Is tender with medial joint line. Got a pretty stiff knee with about a 10 to 15 degree flexion contracture only bends about 100 to 105 degrees. No particular pain with hip motion. He is neurovascular intact. Constitutional WD/WN, vitals as above ENMT external ear and nose normal, oropharynx normal Neck trachea midline, no thyromegaly Respiratory normal respiratory effort, lungs clear to auscultation Cardiovascular RRR, no murmur, no edema Gastrointestinal (Abdomen) normal bowel sounds, soft, nontender, no hepatosplenomegaly Results & Data Results & Data Laboratory Results . Diagnostic Findings . X-rays of the left knee reviewed. Shows advanced medial compartment arthritis. Looks like he has got some AVN of the medial femoral condyle with collapse. Is got a healed fibular fracture. 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 PG Care Time/CCT Total # of Minutes Spent Total Time Spent with Patient: Total time spent is greater than 50% in coordination of care (as documented) at patient's floor/unit and/or counseling patient: Coding Level of Care Code None Diagnoses Left knee DJD M17.12
[~2023-06-04 08:47] MED LIST changes: +BUPIVACAINE LIPOSOME/PF 266 MG, BUPIVACAINE/EPINEPHRINE 50 ML, SODIUM CHLORIDE 0.9% PF ... INFIL SCH; -CEFAZOLIN 2000MG 2,000 MG/15 ML SYR IV SCH; +CeleBREX 200 MG CAP PO SCH; -GABAPENTIN 300 MG x 2 PO SCH; +ROPIVACAINE 0.5% 5 MG/ML 30 ML VIAL ONE; -SCOPOLAMINE 1.5 MG TDSY TD SCH; +Scopolamine 1 MG TDSY TD SCH; +TRANEXAMIC ACID 1,000 MG **IV Intra-op IV SCH; -TRANEXAMIC ACID 1,000 MG **IV Pre-op IV SCH; +ceFAZolin 2000MG 2,000 MG/15 ML SYR IV SCH; +dexAMETHasone 4 MG TAB PO SCH
--- NOTE | 2023-06-04 09:01 | History & Physical Bridge Note ---
Date of Service June 04, 2023 History & Physical Bridge Note I have examined the patient, reviewed the History & Physical and in the interval since the performance of the History & Physical I have noted the following changes of clinical significance: no changes noted
[2023-06-04] MEDS ORDERED: MIDAZOLAM HCL 1 MG/ML 2ML VIAL ONE (09:29)
[2023-06-04] MEDS ORDERED: fentaNYL citrate PF 100 MCG/2 ML VIAL ONE (09:29)
--- OUTSIDE RECORDS SUMMARY | 2023-06-04 09:30 | External Medical Summary ---
Author Name Unknown Address Unknown Organization K1F:LABORATORY [facility] - [address] [place] [address] Laboratory Report Ordering Provider Test Date Status YUDELKA CALLAWAY 05/23/2023 14:25:00 Final Observation Date Value Abnormality Reference (Units ) Status Retic, % (auto) 05/23/2023 14:25:00 Final No result - reticulocyte jc ue above or below detection level.
null Performing Location LABORATORY [facility] - [address] [place] [address]
--- OUTSIDE RECORDS SUMMARY | 2023-06-04 09:30 | External Medical Summary ---
Author Name Unknown Address Unknown Organization K1F:LABORATORY [facility] - [address] [place] [address] Laboratory Report Ordering Provider Test Date Status YUDELKA CALLAWAY 05/23/2023 14:25:00 Final Observation Date Value Abnormality Reference (Units ) Status WBC, Total 05/23/2023 14:25:00 13.48 Above high normal 4.00-10.80 (K/uL) Final RBC 05/23/2023 14:25:00 2.19 4.50-5.25 (M/uL) Final Hemoglobin 05/23/2023 14:25:00 8.8 Below low normal 14.0-16.8 (g/dL) Final HCT 05/23/2023 14:25:00 27.4 Below low normal 40.0-48.4 (%) Final MCV 05/23/2023 14:25:00 125.1 82.0-99.5 (fL) Final MCH 05/23/2023 14:25:00 40.2 27.0-34.0 (pg) Final MCHC 05/23/2023 14:25:00 32.1 32.0-36.0 (g/dL) Final RDW 05/23/2023 14:25:00 12.9 11.5-15.5 (%) Final Platelets 05/23/2023 14:25:00 737 Above high normal 140-400 (K/uL) Final MPV 05/23/2023 14:25:00 10.5 6.6-11.1 (fL) Final Nucleated erythrocytes/100 leukocytes [Ratio] in Blood by Automated count 05/23/2023 14:25:00 1 Above high normal <=0 (/100 WBCs) Final Performing Location LABORATORY [facility] - [address] [place] [address]
--- OUTSIDE RECORDS SUMMARY | 2023-06-04 09:30 | External Medical Summary ---
Author Name Unknown Address Unknown Organization K1F:LABORATORY [facility] - [address] [place] [address] Laboratory Report Ordering Provider Test Date Status YUDELKA CALLAWAY 05/23/2023 14:25:00 Final Observation Date Value Abnormality Reference (Units ) Status SYNC LEUKOCYTES IN BLOOD BY AUTOMATED COUNT 05/23/2023 14:25:00 13.48 Above high normal 4.00-10.80 (K/uL) Final Segs 05/23/2023 14:25:00 51.6 40.0-75.0 (%) Final Lymphs % 05/23/2023 14:25:00 33.0 18.0-42.0 (%) Final Monos 05/23/2023 14:25:00 9.3 1.0-11.0 (%) Final Eosinophils 05/23/2023 14:25:00 4.1 0.0-6.0 (%) Final Basos 05/23/2023 14:25:00 1.3 0.0-2.0 (%) Final Immature Granulocyte, Percent 05/23/2023 14:25:00 0.7 0.0-2.0 (%) Final Absolute Segs 05/23/2023 14:25:00 6.95 1.80-7.70 (K/uL) Final Lymphs, absolute 05/23/2023 14:25:00 4.45 1.00-4.80 (K/ul) Final Monos, Abs 05/23/2023 14:25:00 1.25 Above high normal 0.00-1.10 (K/uL) Final Eos, Abs 05/23/2023 14:25:00 0.55 0.00-0.70 (K/uL) Final Basos, Abs 05/23/2023 14:25:00 0.18 0.00-0.20 (K/uL) Final Immature Granulocytes, Number 05/23/2023 14:25:00 0.10 0.00-0.20 (K/uL) Final Performing Location LABORATORY [facility] - [address] [place], [place] [address] [place] [address]
[2023-06-04] MEDS ORDERED: PROPOFOL IV EMULSION 10 MG/ML 20 ML VIAL IV ONE ×3 (09:31)
[2023-06-04] MEDS ORDERED: PHENYLEPHRINE HCL 10 MG/ML VIAL ONE (09:31)
[2023-06-04] MEDS ORDERED: BUPIVACAINE LIPOSOME 1.3% 266 MG/20 ML VIAL ONE (10:52)
[2023-06-04] MEDS ORDERED: BUPIVACAINE/EPINEPHRINE 0.25% 1:200,000 30 ML VIAL ONE (10:52)
[2023-06-04] MEDS ORDERED: SODIUM CHLORIDE 0.9% PF 50 ML VIAL ONE (10:52)
[2023-06-04] MEDS ORDERED: DEXAMETHASONE SOD INJ 4 MG/ML VIAL ONE (11:46)
[2023-06-04] MEDS ORDERED: ONDANSETRON INJ 2 MG/ML 2 ML VIAL ONE ×2 (11:47)
--- NOTE | 2023-06-04 13:23 | Operative Report ---
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 He had a large area of avascular necrosis medial femoral condyle with a large cavitary defect. He had some full-thickness cartilage changes laterally as well as in the patellofemoral joint. He had a fixed varus deformity to his knee. Severe osteopenia with extremely porous bone of the distal femur and proximal tibia. Specimens Left knee sent for pathology Drains None Anesthesia Type Spinal MAC Complications none Disposition Accompanied Patient To Recovery: No Indications Patient is 68-year-old Faith gentleman has had a long history of multiple joint problems. He is got a known chronic pyruvate kinase deficiency with chronic underlying anemia. He has had both his hips replaced. Over the past year he developed increased pain discomfort swelling in his knee. Is been there extensive conservative treatment which became less successful over time. X-rays show a large area of avascular porosis of the medial femoral condyle with collapse. Patient elected proceed with surgical treatment. Description of Procedure Operative implants consist of: 1. Biomet Vanguard size 75 left posterior stabilized femoral component. 2. Biomet size 83 tibial tray. 3. 12 mm posterior stabilized polyethylene insert. 4. 34 x 8 and half all poly patella. The patient was taken to the operating, identified, and placed on the operating table in the supine position. All contact areas were properly padded. IV antibiotic 5 by anesthesia team. A spinal anesthetic and abductor canal block had been provided in the holding area. A left thigh turn was then placed. Left lower extremities then prepped and draped in usual sterile fashion. The left leg was elevated exsanguinated with use of an Esmarch and the turn was placed at 300 mmHg. An anterior approach the left knee was then performed to longitudinal incision centered over the patella. Sharp dissection was carried through subcutaneous tissue down the extensor mechanism. A medial parapatellar arthrotomy incision was made. Some subperiosteal dissection was carried out medially. The fat pad was resected from Neath patella tendon. The lateral patellofemoral ligament was released. Patella subluxated laterally knee was flexed. The osteophytes were taken on distal femur. The ACL and PCL were then released from the distal femur and the tibia subluxated anteriorly. The external tibial alignment jig was then placed in the interface the tibia and adjusted 14 mm medially. Proximal tibial cut was made removed by millimeter bone from most deficient aspect medial tibial plateau. Some osteophytes taken off medial and posterior medially. The tibia was sized to a size 83. Of note, the cancellous bone was extremely portion of his proximal tibia. Attention drawn the femur. The distal femur was then with a sharp drill. Intramedullary canal was suction. A left 6 degree valgus cutting guide was placed. Distal femoral cutting block was pinned in place. Distal femoral cut was made to take an additional 3 mm bone off distal femur. The femur was then sized to a size 75. The AP cutting block was pinned parallel to the epicondylar axis which was 5 degrees of external rotation. The anterior cut, anterior chamfer, posterior cut, posterior chamfer cuts were made. The box cutting guide was placed in a just slight lateral and the box cut was made. The knee was flexed. The remnants of the medial and lateral menisci were excised. The osteophytes taken off the posterior aspect the femur. A trial femoral component was placed. The tibial tray was pinned in maximum external rotation and the drill and stem punch used to create defect in proximal tibia for the tibial tray. The knee was then trialed and the 12 mm insert fit most appropriately. Attention drawn the patella. The patella was cleaned of all soft tissue. Patella thickness measured 24 mm in thickness was cut down to 15. Was sized to a size 34 patella. The lug holes were drilled for a 34 patella. Lateral osteophytes removed. Patella button was placed. Knee was taken through range of motion and the patella tracked nicely with no thumbs test. Attention drawn to placing the permanent components. Nupathe all trial components were removed. Bone plug was placed in the distal femur limit blood loss. Double batch Palacos G cement was mixed. BiomInCrowd size 75 left posterior stabilized femoral component, a size 83 tibial tray, a 12 mm posterior stabilized polyethylene insert, and a 34 x 8 and half all poly patella then cemented in place. The knee was brought out into full extension till cement hardened. Final cement check was then performed. The pericapsular tissues were injected with total of 100 cc of combination of 20 cc of Exparel, 30 cc normal saline, 50 cc of quarter percent Marcaine with epinephrine. Patient did receive 1 g tranexamic acid. The tourniquet was then let down for final tourniquet time 63 minutes. Hemostasis assured use electrocautery. Extensor Meclomen closed with combination 1 PDS suture #1 Vicryl suture in a [id number] fashion. Extensor mechanism checked found to be intact with subcutaneous tissues then closed with 2 Dexon suture in a buried interrupted fashion skin was closed skin sola. Leg was then cleaned and dried and sterile dressing was Xeroform, 4 fours, sterile cast padding, Glen bandage were applied. Patient then transferred to the recovery in stable condition. Patient tolerated procedure well and there are no complications. Christopher Penn, my physician veterinary assistant technician, was present for the entire procedure. His assistance was essential and required for appropriate patient positioning, prepping and draping, surgical exposure, performing the technical details of the operation, placement the implants, closure of the wound, and placement of the sterile bandage. I attest to the content of the Intraoperative Record and any orders documented therein. Any exceptions are noted below.
--- NOTE | 2023-06-04 14:28 | Anesthesiology Progress Note ---
Date of Service June 04, 2023 Anesthesia Post Procedure Vital Signs Vital Signs: Temp Pulse Pulse Resp BP Pulse Ox O2 Del Method 06/04/23 14:05 76 17 114/59 L 95 Nasal Cannula 06/04/23 13:55 92 H 20 119/70 94 Room Air 06/04/23 13:45 93 H 15 126/62 94 Room Air 06/04/23 13:35 82 13 117/62 96 Oxymask 06/04/23 13:25 80 13 119/67 96 Oxymask 06/04/23 13:17 36.1 C L 90 16 116/62 95 Oxymask 06/04/23 11:35 88 17 119/70 96 Room Air 06/04/23 09:25 36.6 C 73 18 143/73 H 94 Room Air O2 Flow Rate 06/04/23 14:05 2 06/04/23 13:55 06/04/23 13:45 06/04/23 13:35 5 06/04/23 13:25 5 06/04/23 13:17 8 06/04/23 11:35 06/04/23 09:25 Notes Mental Status: alert / awake / arousable Patient Amnestic to Procedure: Yes Nausea / Vomiting: adequately controlled Pain: adequately controlled Airway Patency, RR, SpO2: stable & adequate BP & HR: stable & adequate Hydration State: stable & adequate Neuraxial Anesthesia: was administered and sensory block is resolving Anesthetic Complications: no major complications apparent
[2023-06-04] MEDS ORDERED: bisacodyL 10 MG SUPP PR PRN (17:18)
[2023-06-04] MEDS ORDERED: METOCLOPRAMIDE HCL INJ 5 MG/ML 2 ML VIAL IV PRN (17:18)
[2023-06-04] MEDS ORDERED: oxyCODONE HCL IR 5 MG TAB (IMMEDIATE RELEASE) PO PRN (17:18)
[2023-06-04] MEDS ORDERED: MAGNESIUM HYDROXIDE SUSP 30 ML UDC PO PRN (17:18)
[2023-06-04] MEDS ORDERED: ALUMINUM/MAGNESIUM SUSP 30 ML UDC PO PRN (17:18)
[2023-06-04] MEDS ORDERED: NALOXONE HCL 0.4 MG/1 ML VIAL/CARP IV PRN (17:18)
[2023-06-04] MEDS ORDERED: ALBUTEROL HFA 8 GM INHALER INH PRN (17:18)
[2023-06-04] MEDS ORDERED: SODIUM CHLORIDE 0.9% 1,000 ML IV SCH (17:18)
[2023-06-04] MEDS ORDERED: ONDANSETRON INJ 2 MG/ML 2 ML VIAL IV PRN (17:18)
[2023-06-04] MEDS ORDERED: HYDROmorphone INJ 0.5 MG/0.5 ML SYR IV PRN (17:18)
[2023-06-04] MEDS: Scopolamine CHECK PATCH PLACEMENT SCH ×2 (17:30→23:29)
[2023-06-04] MEDS: KETOROLAC TROMETHAMINE 15 MG/ML VIAL IV SCH ×2 (18:00→22:55)
[2023-06-04] MEDS: ACETAMINOPHEN 500 MG TAB PO SCH ×2 (18:00→20:33)
[2023-06-04] MEDS: ceFAZolin 1000MG 1,000 MG/7.5 ML SYR IV SCH (18:44)
[2023-06-04] MEDS ORDERED: TRANEXAMIC ACID / 0.7% NACL 1,000 MG/100 ML BAG IV SCH (19:15)
--- NOTE | 2023-06-04 19:15 | XRay Report ---
XR knee LT 1 or 2V routine CLINICAL HISTORY: Postoperative evaluation. COMPARISON: Left knee radiographs November 20, 2022. FINDINGS: Alignment of the total left knee arthroplasty is anatomic. There is no periprosthetic frac ture or unexpected radiopaque foreign body. There are skin sola. Healed proximal diaphyseal fibula r fracture is unchanged. Vascular calcification is incidentally noted. IMPRESSION: Expected findings following total left knee arthroplasty. ACT 112: Negative or not required by law. Electronically signed by: Jose Enrique Martínez M.D. 06/04/2023 7:13 PM
[2023-06-04] MEDS: ASPIRIN 81 MG ECTAB PO SCH (20:32)
[2023-06-04] MEDS: DOCUSATE SODIUM 100 MG CAP PO SCH (20:33)
[2023-06-04] MEDS ORDERED: SENNA 8.6 MG TAB PO SCH ×2 (21:00)
[2023-06-05] MEDS: ceFAZolin 1000MG 1,000 MG/7.5 ML SYR IV SCH (04:14)
[2023-06-05] MEDS: KETOROLAC TROMETHAMINE 15 MG/ML VIAL IV SCH (05:24)
[2023-06-05 06:28] LABS: Hematocrit (blood only) 21.9 % (42.0-52.0); Hemoglobin 7.2 g/dl (14.0-18.0); Mean Corpuscular Hemoglobin 38.1 pg (25.0-34.0); Mean Corpuscular Hgb Conc 32.9 g/dL (32.0-36.0); Mean Corpuscular Volume 115.9 fL (80.0-100.0); Mean Platelet Volume 9.9 fL (9.4-12.4); Nucleated RBC # (auto) 0.06 K/uL (0.00-0.12); Nucleated RBC % (auto) 0.2 %; Platelet Count 523 K/uL (130-400); RDW Coefficient of Variation 12.3 % (11.5-14.5); RDW Standard Deviation 51.8 fL (36.4-46.3); Red Blood Count 1.89 M/uL (4.70-6.10)
[2023-06-05 07:00] LABS: BUN Creatinine Ratio 29.2 (10-20); Calcium 8.6 mg/dl (8.6-10.3); Creatinine Clr Calc Pharmacy 106.9 ml/min; Est GFR (African American) 117.5 ml/min; Est GFR (Non-African American) 101.4 ml/min; Potassium 4.3 mmol/L (3.5-5.1)
[2023-06-05] MEDS ORDERED: dexAMETHasone 10 MG in SYRINGE 0 ML IV SCH (08:00)
[2023-06-05] MEDS: Scopolamine CHECK PATCH PLACEMENT SCH (08:38)
[2023-06-05] MEDS: DOCUSATE SODIUM 100 MG CAP PO SCH (08:39)
[2023-06-05] MEDS: ACETAMINOPHEN 500 MG TAB PO SCH (08:40)
[2023-06-05] MEDS: ASPIRIN 81 MG ECTAB PO SCH (08:41)
[2023-06-05] MEDS ORDERED: ADRENAL COMPLEX PO SCH (09:00)
[2023-06-05] MEDS ORDERED: FOLIC ACID 1 MG TAB PO SCH (09:00)
[2023-06-05] MEDS ORDERED: CYANOCOBALAMIN (B-12) 500 MCG TABLET PO SCH (09:00)
[2023-06-05] MEDS ORDERED: ASCORBIC ACID 500 MG TAB PO SCH (09:00)
[2023-06-05] MEDS ORDERED: MULTIVITAMIN TAB PO SCH (09:00)
[2023-06-05] MEDS ORDERED: TAMSULOSIN HCL 0.4 MG CAP PO SCH (09:00)
[2023-06-05] MEDS ORDERED: CALCIUM PO SCH (09:00)
[2023-06-05] MEDS ORDERED: VITAMIN B COMPLEX TAB PO SCH (09:00)
[2023-06-05] MEDS ORDERED: NON-FORMULARY MEDICATION (Turmeric 400 mg Capsule) PO SCH (09:00)
--- NOTE | 2023-06-05 11:32 | Surgery Progress Note ---
Date of Service June 05, 2023 Assessment & Plan (1) Status post left knee replacement: Plan: 68-year-old gentleman postop day 1 from a left knee replacement. Is got chronic anemia. He is anemic but asymptomatic. This is close to his baseline. He is neurologically intact. Pain is controlled. Plan: 1. DVT prophylaxis including thigh-high teds, SCDs, aspirin twice a day. 2. PT/OT. Weight-bear as tolerated left total knee protocol. 3. Pain control doing okay with current pain regimen. 4. Disposition plan to discharge to home. Is going to home health. (2) Chronic anemia: Admission and Anticipated Discharge Date Admission Date: June 04, 2023 Subjective 68-year-old [facility] gentleman now postop day 1 from a left knee replacement. He is doing pretty well. Pretty good night. Pain is controlled. He is walking some with a walker. Denies any chest pain or shortness of breath. Not feeling dizzy or lightheaded. Hoping to go home today. Physical Exam Physical Exam: Physical examination was a pleasant thin healthy middle-age male. He is lying in bed looks pretty comfortable this morning. Examination left leg reveals the dressing be clean dry and intact. His ice packs in place. He can dorsiflex and plantarflex his foot appropriately. He is neurologically intact. Respiratory: normal respiratory effort, lungs clear to auscultation Cardiovascular: RRR, no murmur, no edema Gastrointestinal (Abdomen): normal bowel sounds, soft, nontender, no hepatosplenomegaly Results & Data Vital Signs (Past 12 Hours) Vital Signs Temp Pulse Resp BP Pulse Ox O2 Del Method 06/05/23 07:47 36.7 C 63 16 135/88 93 Room Air 06/05/23 07:25 Room Air 06/05/23 03:22 36.6 C 64 18 132/73 95 Room Air Laboratory Results Hemoglobin 7.2. Hematocrit 21.9. Electrolytes are stable. PG Care Time/CCT Total # of Minutes Spent Total Time Spent with Patient: Total time spent is greater than 50% in coordination of care (as documented) at patient's floor/unit and/or counseling patient: Coding Level of Care Code 29899 Post Operative Follow-Up Diagnoses Status post left knee replacement Z96.652 Chronic anemia D64.9
--- NOTE | 2023-06-06 12:43 | Discharge Summary ---
Date of Service June 06, 2023 Discharge Data Consultations 06/04/23 17:18 Consult Hospitalist Routine Procedures Performed Operation Date: 06/04/23 10:30 Actual Procedures p Left Total Knee Arthroplasty(Left) - Francesco Silveira MD Hospital Course (1) Status post left knee replacement: This is a 68 year old patient admitted on 06/04/23 and underwent total knee arthroplasty. He tolerated the procedure well and there were no complications. Transferred to the PACU post op and later to the orthopedic floor for further care. He was given ancef for antibiotic prophylaxis. He was also given MATY stockings, SCDs, and aspirin for DVT prophylaxis. Hemoglobin, hematocrit, and vital signs were monitored during his hospital stay and remained stable. Did not require any blood transfusions. There were no complications during his hospital stay. By post op day #1 the patient was tolerating a regular diet, pain was reasonably controlled with oral pain medicine, and he was participating in physical therapy. On post op day #1 the patient was discharged home and set up with home health care. He was given printed discharge instructions including prescriptions for extra strength tylenol, aspirin, cefadroxil, ketorolac, zofran, senokot, flomax, and oxycodone. Continue physical therapy, weight bearing as tolerated. Continue MATY stockings. Follow up approximately 2 weeks post op or sooner if there are problems or concerns. Coding Level of Care Code None Diagnoses Status post left knee replacement Z96.652
== END 2023-06-05 11:35 | disposition home health service (06) ==
LOC: ASU 08:47 → 3E 08:47